=== PATIENT | female | born 1990 | race African-American/Black ===

== ENCOUNTER 2017-11-09 03:37 | Emergency (ER) | payer BC ==
[~2017-11-09] VITALS: Ht 162.6 cm; Wt 59.9 kg
[2017-11-09] MEDS ORDERED: FLUT1DIS28 (03:50)
[2017-11-09] MEDS ORDERED: FLUT9.9S (03:50)
[2017-11-09] MEDS ORDERED: ALBU2.5V38 (03:50)
--- NOTE | 2017-11-09 03:53 | NUR ---
at bedside for eval.
[2017-11-09] MEDS ORDERED: ONDANSETRON 4 MG/2 ML VIAL IV ONE (04:00)
[2017-11-09] MEDS ORDERED: KETOROLAC TROMETHAMINE 15 MG INJ IV ONE (04:00)
[2017-11-09] MEDS ORDERED: IV NORMAL SALINE 1000 ML BAG IV ONE (04:00)
[2017-11-09] MEDS ORDERED: KETOROLAC TROMETHAMINE 30 MG INJ ONE (04:04)
[2017-11-09] MEDS ORDERED: ONDANSETRON 4 MG/2 ML VIAL ONE (04:04)
[2017-11-09 04:25] LABS: *BILIRUBIN,URIN NEGATIVE (NEGATIVE); *BLOOD, URINE 2+ (NEGATIVE); *CLARITY,URINE CLOUDY (CLEAR); *COLOR,URINE YELLOW (YELLOW); *KETONES,URINE NEGATIVE (NEGATIVE); *PROTEIN,URINE 2+ (NEGATIVE); *UROBILINOGEN,URINE 0.2 E.U./dl (NORMAL); LEUKOCYTE ESTERASE ,URINE NEGATIVE (NEGATIVE); NITRITE, URINE NEGATIVE (NEGATIVE); PH,URINE >=9.0 (5.0-8.0); UGLUCOSE NEGATIVE (NEGATIVE)
[2017-11-09 04:43] LABS: CREATININE 0.7 mg/dL (0.6-1.3); POTASSIUM 4.6 mmol/L (3.5-5.1)
[2017-11-09 04:48] LABS: BILIRUBIN,DIRECT 0.1 mg/dL (0.0-0.2); BILIRUBIN,TOTAL 0.3 mg/dL (0.2-1.0); TOTAL PROTEIN, SERUM 7.7 g/dL (6.4-8.2)
[2017-11-09 04:56] LABS: *URINE HCG, QUAL NEGATIVE (NEGATIVE); BACTERIA,URINE FEW /HPF (NONE SEEN); RBC,URINE 50-80 /HPF (0-3); SQUAMOUS EPITHELIAL CELL,UR FEW /HPF (NONE SEEN)
[2017-11-09 05:26] LABS: BASOPHILS % (AUTO) 0.2 % (0.0-2.0); EOSINOPHILS # (AUTO) 0.1 K/uL (0.0-0.7); EOSINOPHILS % (AUTO) 0.7 % (0.0-7.0); HEMATOCRIT 35.2 % (31.2-41.9); HEMOGLOBIN 11.4 g/dL (10.9-14.3); LYMPHOCYTES # (AUTO) 0.9 K/uL (20.0-40.0); LYMPHOCYTES % (AUTO) 10.8 % (20.5-51.5); MEAN CORPUSCULAR HEMOGLOBIN 24.1 uug (24.7-32.8); MEAN CORPUSCULAR HGB CONC 32 g/dL (32.3-35.6); MEAN CORPUSCULAR VOLUME 74.5 fL (75.5-95.3); MONOCYTES # (AUTO) 0.2 K/uL (2.0-10.0); MONOCYTES % (AUTO) 2.9 % (0.0-11.0); NEUTROPHILS # (AUTO) 6.9 K/uL (1.8-8.9); NEUTROPHILS % (AUTO) 85.4 % (38.5-71.5); PLATELET COUNT (AUTO) 243 K/uL (179-408); RED BLOOD CELL COUNT(AUTO) 4.72 MIL/uL (3.63-4.92)
--- NOTE | 2017-11-09 05:45 | NUR ---
Pt calm with no increased pain since receiving IV toradol. No c/o nausea since receiving Zofran. Will continue to monitor.
--- NOTE | 2017-11-09 06:14 | NUR ---
Patient discharged to home in stable conditon. Written and verbal after care instructions given. Patient verbalizes understanding of instructions. Able to ambulate independently. All belongings taken with.
[2017-11-09 06:15] VITALS: BP 110/70
== END 2017-11-09 06:17 | disposition home or self-care (01) ==
LOC: ER 03:47
DX: R10.30 Lower abdominal pain, unspecified (principal)
CPT/HCPCS: 36415; 83690; 84703; 85025; A4663; J1885; J2405; J7030